=== PATIENT | female | born 1990 | race Two or more races ===

== ENCOUNTER 2024-04-16 16:51 | Emergency (ER) | payer MEDICAID ==
[~2024-04-16] VITALS: Ht 167.6 cm; Wt 79.5 kg
[2024-04-16 16:54] VITALS: BP 113/76; PULSE 87; RESP 30; O2SAT 100
[2024-04-16] MEDS ORDERED: LORazepam 0.5 MG TAB PO ONE (17:30)
== END 2024-04-16 18:32 | disposition left against medical advice (07) ==
LOC: EDBD 16:51 → ER 16:51
DX: F41.9 Anxiety disorder, unspecified (principal); Z53.21 Procedure and treatment not carried out due to patient leaving prior to being seen by health care provider